=== PATIENT | female | born 1960 | race Two or more races ===

== ENCOUNTER 2016-12-30 11:26 | Emergency (ER) | payer OTHER ==
[~2016-12-30] VITALS: Ht 160 cm; Wt 65.8 kg
[2016-12-30 12:06] LABS: Urine Bilirubin Negative (Negative); Urine Blood 1+ /uL (Negative); Urine Color Yellow (Yellow); Urine Glucose Normal (Normal); Urine Ketone Negative (Negative); Urine Mucus FEW (None Seen); Urine Nitrite Negative (Negative); Urine RBC 8 /hpf (0 - 4); Urine Squamous Epithelial Cell FEW /hpf (<5); Urine Urobilinogen Normal (Negative); Urine pH 6.5 (5.0-8.0)
[2016-12-30 12:24] LABS: Basophils # (auto) 0 uL; Basophils % (auto) 0.5 % (0.0-2.0); Eosinophils # (auto) 0.1 uL; Eosinophils % (auto) 1.6 % (0.0-7.0); Hematocrit 38.7 % (36.0-46.0); Hemoglobin 12.8 g/dL (12.2-16.2); Lymphocytes # (auto) 2.9 uL; Lymphocytes % (auto) 42.5 % (10.0-50.0); Mean Corpuscular Hgb Conc. 33.1 g/dL (32.0-36.0); Mean Corpuscular Volume 87.6 fL (80.0-100.0); Mean Platelet Volume 7.3 fL (6.9-10.8); Monocytes # (auto) 0.4 uL; Monocytes % (auto) 6.2 % (0.0-12.0); Neutrophils # (auto) 3.4 uL; Neutrophils % (auto) 49.2 % (37.0-80.0); Nucleated Red Blood Cells % 0.1 %; Platelet Count (auto) 287 10^3/uL (140-450); Red Cell Distribution Width 13.8 % (11.8-14.3); White Blood Cell 6.9 10^3/uL (4.4-10.8)
[2016-12-30 12:46] LABS: Anion Gap 5 (5-15); Blood Urea Nitrogen 19 mg/dL (7-18); Calcium 9.1 mg/dL (8.5-10.1); Carbon Dioxide 27 mmol/L (21-32); Chloride 106 mmol/L (98-107); Glucose 82 mg/dL (74-106); Sodium 138 mmol/L (136-145)
[2016-12-30 12:48] LABS: Aspartate Aminotransferase 17 U/L (15-37); BUN/Creatinine Ratio 23.5; GFR African American 94 mL/min; GFR Non-African American 78 mL/min
[2016-12-30 12:53] LABS: Alkaline Phosphatase 94 U/L (45-117); Bilirubin, Total 0.5 mg/dL (0.2-1.0); Total Protein 7.7 g/dL (6.4-8.2)
[2016-12-30 16:31] VITALS: BP 105/69
== END 2016-12-30 17:07 | disposition home or self-care (01) ==
LOC: ER 11:26
DX: R07.89 Other chest pain (principal); Z87.442 Personal history of urinary calculi; Z88.0 Allergy status to penicillin
CPT/HCPCS: 36415; 71020; 76705; 80053; 81001; 84484; 85025; 93005

== ENCOUNTER 2017-11-20 08:17 | Emergency (ER) | payer SELFPAY ==
[~2017-11-20] VITALS: Ht 157.5 cm; Wt 63.5 kg
[2017-11-20 08:27] VITALS: BP 104/57
== END 2017-11-20 09:44 | disposition home or self-care (01) ==
LOC: ER 08:17
DX: K61.1 Rectal abscess (principal); J02.9 Acute pharyngitis, unspecified; Z88.0 Allergy status to penicillin